=== PATIENT | female | born 1995 | race Caucasian/White ===

== ENCOUNTER 2016-12-23 10:46 | Day surgery (SDC) | payer OTHER ==
[2016-12-23] VITALS (8 sets, daily range): BP systolic 110–129; BP diastolic 46–79; PULSE 70–89; RESP 14–27; O2SAT 94–98
[~2016-12-23] VITALS: Ht 157.5 cm; Wt 63.1 kg
[~2016-12-23 10:46] MED LIST: CeFAZolin 2 Gm/50 mL D5W IV Premix IV ONE
[2016-12-23] MEDS ORDERED: Ketamine 10 mg/mL 20 mL Inj ONE (10:47)
[2016-12-23] MEDS ORDERED: Ondansetron 2 mg/mL 2 mL Inj ONE (10:47)
[2016-12-23] MEDS ORDERED: Propofol 10,000 mCg/mL 20 mL Inj ONE (10:47)
[2016-12-23] MEDS ORDERED: fentaNYL-PF 50 mCg/mL 2 mL Inj ONE (10:47)
[2016-12-23] MEDS ORDERED: CeFAZolin Inj 2 gm / 50mL D5W IV ONE (11:25)
[2016-12-23] MEDS: Lactated Ringer's 1,000 ML IV SCH ×2 (11:49→13:24)
[2016-12-23] MEDS ORDERED: Lactated Ringer's 500 ML IV PRN (13:21)
[2016-12-23] MEDS ORDERED: Lactated Ringer's 1,000 ML IV SCH (13:21)
[2016-12-23] MEDS ORDERED: fentaNYL-PF 50 mCg/mL 2 mL Inj IVPUSH PRN (13:25)
[2016-12-23] MEDS ORDERED: MetoCLOpramide 5 mg/mL 2 mL Inj IVPUSH PRN (13:25)
[2016-12-23] MEDS ORDERED: EPHEDrine Sulfate 50 mg/mL Inj IVPUSH PRN (13:25)
[2016-12-23] MEDS ORDERED: Ondansetron 2 mg/mL 2 mL Inj IVPUSH PRN (13:25)
[2016-12-23] MEDS ORDERED: Dexamethasone 4 mg/mL Inj IVPUSH PRN (13:25)
[2016-12-23] MEDS ORDERED: Phenylephrine 10,000 mCg/mL Inj IVPUSH PRN (13:25)
[2016-12-23] MEDS ORDERED: HYDROmorphone 1 mg/mL Inj IVPUSH PRN (13:25)
[2016-12-23] MEDS ORDERED: Bupivacaine-MPF 0.5% W/EPI 30 mL Inj INFILTRATE ONE ×2 (13:48→14:50)
[2016-12-23] MEDS ORDERED: HYDROcodone-APAP 5-325 mg Tablet PO PRN (14:40)
[2016-12-23] MEDS ORDERED: Lactated Ringer's 1,000 ML IV ONE (14:50)
--- NOTE | 2016-12-23 15:20 | PCM.HPANE ---
Patient Data Date of Service: Dec 23, 2016 Surgeon Admitting Provider: Attending Provider:Darryn Canales MD Primary Care Physician:Holley Koenig MD Other Provider:Josette Mendieta Anesthesia Reason for Visit Hypertrophic, Scar Pain Ht/WT & BMI Height (Feet): 5 Height (Inches): 2 Weight (Kilograms): 63.1 Body Mass Index 25.00 Allergies Coded Allergies: amoxicillin (Verified Allergy, Unknown, hives, 06/05/16) clavulanic acid (Verified Allergy, Unknown, hives, 06/05/16) Past Anesthesia History Anesthesia History: Denies:: Abnormal Airway, Anesthesia Reactions, Difficult Intubation, Fam Anesthesia Reaction, Fam Malignant Hypertherm, Malignant Hyperthermia Diabetes History Hx Diabetes?: No MRSA MRSA: No Medications Home Meds Incl Beta Roly: No No Active Prescriptions or Reported Meds History History of ENT Problems?: No HEENT History: Denies:: Abnormal Airway Cataracts Difficult Intubation Dysphagia Glaucoma Hearing Problem Sinus Problem TMJ Denture Type: None Teeth Condition: Within Normal Limits Hx of Heart Problems?: No Cardiovascular History: Denies:: AICD Abdominal Aortic Aneurism Atrial Fibrillation Chest Pain Congestive Heart Failure Edema Heart Murmur Hypertension Irregular Heartbeat Pacemaker Hx of Respiratory Problem?: Yes Respiratory History: Positive for:: Asthma (as child currently controlled) Denies:: COPD Chest Surgery Cough Dyspnea Emphysema Hemoptysis Oxygen Administration Pneumonia Pulmonary Embolism Tuberculosis Use of C-PAP Machine Use of Inhalers / NEBS Hx Neurologic Problems?: No Neurological History: Denies:: CVA Dementia Dizziness Headaches Multiple Sclerosis Parkinson's Disease Seizures Hx of GI Problems?: No Hx of Problems?: No Genitourinary History: Denies:: Kidney Stones Urinary Tract Infection Female Hx: Denies:: Currently Endometriosis Pelvic Inflammatory Problems with Breasts? Skin History: Denies:: History Skin Disorders? Pressure Ulcers Hx Musculoskeletal Problems?: No Musculoskeletal History: Denies:: Back Injury Degenerative Joint Joint Replacement Musculoskeletal Trauma Hx of Psycho/Social Problems?: No Psycho Social History: Denies:: Anxiety Hx Depression Hx Surgeries?: Yes (Breast reduction) Hx Any Other Health Problems?: Yes Other History: Positive for:: Hospitalization (May 2016) Denies:: Cancer Endocrine Disease Thyroid Disease History Blood Transfusions: Positive for:: Accept Blood Products? Denies:: Blood Transfuse Reaction Blood Transfusions Hx Diabetes: No Hx Alcohol Use: NoHx Substance Use: NoHave You Smoked inLast 12 mo: No Stop/Bang Treated for Sleep Apnea?: No Do You Have a CPAP Machine?: No S-Snoring: Do You Snore Loudly: No T-Tired: feel tired, fatigued: Yes O-Obsered: Observed not breath: No P-Blood Pressure: treated: No B- Body Mass Index > 35 kg/m2: No A- Age over 50: No N- Neck Large Circumference: No G- Gender Male: No VINITA Total Score: 1 VINITA Risk Assessment: Low Risk, <3 Yes Risk Assessment Category Category 1A: Patient has history of documented sleep apnea, and HAS NOT received any narcotic, sedative or anesthesia administration during this stay. Category 1B: Patient has history of documented sleep apnea, and HAS received any narcotic , sedative or anesthesia administration during this stay Category 2: Patient has SUSPECTED Obstructive Sleep Apnea, and HAS received any narcotic , sedative or anesthesia administration during this stay. Category 3: Patient has SUSPECTED Obstructive Sleep Apnea and HAS NOT received narcotic, sedative or anesthesia administration during this stay. Category 4: Outpatient in Procedural Areas with known sleep apnea or who screen positive for High Risk via the STOP/BANG questionnaire. Exam Exam Vital Signs Vital Signs Date Time Temp Pulse Resp B/P Pulse Ox O2 Delivery O2 Flow Rate FiO2 12/23/16 15:10 89 17 127/62 96 Room Air 12/23/16 14:55 80 14 116/79 97 Room Air 12/23/16 14:50 81 27 110/51 94 Room Air 12/23/16 14:45 83 14 120/56 95 Room Air 12/23/16 14:40 36.2 85 17 126/46 94 Room Air 12/23/16 11:50 36.2 80 16 126/74 98 Room Air General Appearance: Alert, Oriented X3, Cooperative, No Acute Distress HEENT/AIRWAY: MP 2 Lungs: Clear to Auscultation, Normal Air Movement Heart: Exam Unremarkable, Regular Rate/Rhythm, No Murmurs/Rubs/Gallops Meds/Labs/Diagnostics Admission Meds Current Medications Lactated Ringer's 1,000 ml @ 120 mls/hr Q8H20M IV Last administered on t 13:24; Start 12/23/16 at 05:00; Stop 12/23/16 at 13:19; Status DC Cefazolin Sodium/ Dextrose/Premix (Ancef Inj/IV Premix) 50 ml @ 100 mls/hr PREOP ONCE IV Last administered on 12/23/16 13:35; Start 12/23/16 at 06:00; Stop 12/23/16 at 06:29; Status DC Scopolamine (Transderm-Scop Patch) 1.5 mg STK-MED ONCE TOPICAL Last administered on 12/23/16 12:21; Start 12/23/16 at 12:19; Stop 12/23/16 at 12:20 ; Status DC Bupivacaine HCl/ Epinephrine Bitart (Sensorcaine-MPF 0.5% W/EPI Inj) 30 ml STK- MED ONCE INFILTRATE Last administered on 12/23/16 13:48; Start 12/23/16 at 13: 48; Stop 12/23/16 at 13:53; Status DC Bupivacaine HCl/ Epinephrine Bitart 30 ml 30 ml STK-MED ONCE INFILTRATE Last administered on 12/23/16 14:50; Start 12/23/16 at 14:50; Stop 12/23/16 at 14:51 ; Status DC Lactated Ringer's (Lr) 1,000 ml @ ud STK-MED ONCE IV Last administered on 12/23 14:50; Start 12/23/16 at 14:50; Stop 12/23/16 at 14:51; Status DC Plan Impression Patient chart reviewed, patient interviewed and anesthestic plan with risks, benefits, and alternatives discussed, and informed consent obtained. NPO per Anesth. Guidelines: Yes ASA Physical Status: ASA2 Mod Systemic Disease Anesthetic Plan: GA Bene/Risks/Altern/Consents: Yes HP Complete Prior to Induction: Yes Lai Morales DO Dec 23, 2016 15:20
--- NOTE | 2016-12-23 15:21 | PCM.ANEP1 ---
Post Anesthesia PACU Phase 1 Assessment Date of Service: Dec 23, 2016 Vital Signs Vital Signs Date Time Temp Pulse Resp B/P Pulse Ox O2 Delivery O2 Flow Rate FiO2 12/23/16 15:10 89 17 127/62 96 Room Air 12/23/16 14:55 80 14 116/79 97 Room Air 12/23/16 14:50 81 27 110/51 94 Room Air 12/23/16 14:45 83 14 120/56 95 Room Air 12/23/16 14:40 36.2 85 17 126/46 94 Room Air 12/23/16 11:50 36.2 80 16 126/74 98 Room Air Anesthetic Administered: GA Level of Alertness: Drowsy, not talking VARELA's with Equal Strength: Yes Pain: No Nausea or Vomiting: No CV Function & Hydration Stable: Yes Airway Device: Oxygen Delivery: Room Air Lungs: Clear to Auscultation, Normal Air Movement Dermatome Level: Full Sensation PACU Phase 2 Assessment Complications: No Patient Instructions Provided: N/A Lai Morales DO Dec 23, 2016 15:21
--- NOTE | 2016-12-24 13:05 | OP ---
[address] [address] OPERATIVE REPORT PATIENT: MEETA MURO : 1995 MR#: [id number] ADMIT: 12/23/2016 JOB ID: [id number] DATE OF SURGERY: 12/23/2016 SURGEON: Darryn Canales MD TRAVEL RN OR: Yanick Oconnor PA-C was present for necessary retraction, exposure, and closure. PREOPERATIVE DIAGNOSIS(ES): 1. Right lateral breast hypertrophic scar. 2. Right periareolar hypertrophic scar. 3. Left inferior breast hypertrophic scar. 4. Left lateral breast hypertrophic scar. POSTOPERATIVE DIAGNOSIS(ES): 1. Right lateral breast hypertrophic scar. 2. Right periareolar hypertrophic scar. 3. Left inferior breast hypertrophic scar. 4. Left lateral breast hypertrophic scar. PROCEDURE: 1. Excision of right lateral breast hypertrophic scar 1 cm x 6 cm. 2. Closure of right lateral breast defect, total length of layered closure 6 cm. 3. Excision of right superior periareolar hypertrophic scar, 4 mm x 2 cm. 4. Layered closure of superior periareolar defect, total length of layered closure 2 cm. 5. Excision of left inferior breast hypertrophic scar 2 cm x 2 cm. 6. Closure of left inferior breast defect with layered closure, total length of layered closure 7 cm. 7. Excision of left lateral breast hypertrophic scar 1.2 cm x 6 cm. 8. Layered closure of left lateral breast defect, total length of layered closure 6 cm. ANESTHESIA: General anesthesia. ESTIMATED BLOOD LOSS: Minimal. COMPLICATIONS: None apparent. SPECIMEN: Bilateral breast hypertrophic scars to Pathology. INDICATIONS FOR PROCEDURE: This is a 21-year-old female patient who is status post bilateral breast reduction in May 2016. The patient has healed well. Patient has several areas of hypertrophic scarring that is tender. At this point, excision of the tender hypertrophic scars is indicated for symptom relief. PROCEDURES AND FINDINGS: The patient was identified in the preoperative area and surgical site was marked. The patient was then taken back to the operating room and placed supine on the operating table. Appropriate time-outs were taken. General anesthesia was induced smoothly. The patient was then prepped and draped in the usual sterile manner. I first turned my attention to the right breast. It was noted that patient has a linear area of hypertrophic scarring at the lateral aspect of the inframammary incision. It measures approximately 6 cm in length and 1 cm in width. Incision was made around hypertrophic scar with a #15 blade. Incision was then deepened down to the normal appearing adipose tissue. The hypertrophic scar was elevated off of the normal appearing adipose tissue and passed off to Pathology as specimen. The incision was then reapproximated first with a layer of 3-0 Monocryl deep dermal suture, followed by 4-0 Monocryl running subcuticular suture. I then turned my attention to the right periareolar area. The patient has some hypertrophic scar at the superior aspect of the nipple-areolar complex. Incision was marked around the area of hypertrophic scarring which measured approximately 0.4 cm x 2.2 cm. Incision was made with a #15 blade, again down to the underlying subcutaneous tissue. The hypertrophic scar was then excised off of the underlying adipose tissue with a #10 blade sharply. The defect was then reapproximated with a layer of 3-0 Monocryl deep dermal suture, followed by 4-0 Monocryl running subcuticular suture. I then turned my attention to the left breast. The patient has an area of hypertrophic scarring at the left T junction secondary to a small amount of marginal necrosis and separation. The area measured approximately 2 cm in width and 2 cm in height in a triangular configuration. Incision was then made around the area of hypertrophic scarring with a #15 blade. This was deepened down into the underlying subcutaneous tissue with electrocautery. The area of hypertrophic scarring was elevated off of the normal appearing adipose tissue and passed off to Pathology as a specimen. I then elevated the inferior, medial and lateral skin flaps for approximately 2 cm in each direction. This allowed me to advanced the flap into the defect. The T junction was then recreated, first using a layer of 3-0 Monocryl deep dermal suture, followed by 4-0 Monocryl running subcuticular suture. The total length of layered closure in this area was approximately 7 cm. I then turned my attention to the left lateral breast. Again, the left lateral end of the inframammary incision is hypertrophic. The area measured approximately 1.2- to 1.3 cm x 7 cm. Incision was made around the hypertrophic scarring with a #10 blade down into the subcutaneous tissue. The hypertrophic scar was then elevated off of the subcutaneous tissue with electrocautery and passed off to Pathology as a specimen. The incision was then reapproximated first with a layer of 3-0 Monocryl deep dermal suture, followed by 4-0 Monocryl running subcuticular suture. The patient tolerated the procedure well. Needle count, sponge count, instrument counts were correct at the end of the procedure. The patient was extubated and transported to recovery in stable condition.
--- NOTE | 2016-12-25 18:34 | PATH ---
SURGICAL PATHOLOGY Attending Physician:Darryn Canales CASE STATUS: Signed Out PATIENT NAME: MEETA MURO PID: [id number] : 1995 DATE COLLECTED:12/23/2016 00:00 SPECIMEN: Skin, Scar CLINICAL HISTORY: BILATERAL BREAST, HYPERTROPHIC SCAR 1). HYPERTROPHIC BILATERAL BREAST SCAR FINAL DIAGNOSIS: Skin (Hypertrophic Bilateral Breast Scar), Excision: Skin and subcutaneous tissue with scar. Negative for neoplasm. ICD10: L91.0 GROSS DESCRIPTION: The specimen is received in formalin, labeled with the patient's name, and consists of multiple unoriented pieces of skin with subcutaneous tissue (7.2 x 3.2 x 0.7 cm in aggregate). The skin is ordaz-white rubbery and focally firm. No nodules, masses or lesions are identified. Ink code: black-resection margin. Section code: (A) skin, serially sectioned, renewals representative. 12/24/16 ICD-9 CODES: CPT CODES: 1: 89917 Electronically Signed Out Jared oTvar MD [facility] [address], [place] [address] Technical component performed at [facility], [address] [place] [address] Ave[address], [place], [address]
== END 2016-12-23 23:59 | disposition home or self-care (01) ==
LOC: SAS 10:46
PROVIDERS: ATTEND Plastic Surgery
DX: L91.0 Hypertrophic scar (principal); L90.5 Scar conditions and fibrosis of skin; J45.909 Unspecified asthma, uncomplicated
CPT/HCPCS: 13101; 13102; J0690; J2250; J2405; J2765; J3010; J7120